=== PATIENT | male | born 1985 | race Caucasian/White ===

== ENCOUNTER → 2021-10-20 | Outpatient (CLI) | payer OTHER | END | disposition home or self-care (01) | LOC: RADUSWWP 15:51 | PROVIDERS: ATTEND Family Medicine | DX: Z53.9 Procedure and treatment not carried out, unspecified reason (principal) ==

== ENCOUNTER → 2021-10-31 | Outpatient (CLI) | payer OTHER ==
--- NOTE | 2021-10-31 10:22 | US ---
EXAMINATION TYPE: US renal artery duplex complete DATE OF EXAM: 10/31/2021 COMPARISON: NONE CLINICAL HISTORY: I10 Hypertension. MEASUREMENTS: RENAL SIZE: Rt Kidney: 10.8 x 6.2 x 4.7cm Lt Kidney: 11.6 x 6.0 x 5.7 RESISTANCE INDEX Right: 0.55 Left: 0.51 RA/AO RATIO (< 3.5 ) Right: 3.1 Left: 2.2 RA VELOCITY ( < 180 cm/s) Right: 207 cm/s Left: 149 cm/s Renal artery proximal on left obscured by overlying bowel gas. Technically difficult somewhat limited study due to overlying bowel gas and thick body habitus. Right renal artery mid very difficult to vi sualize due to tortuosity. Slight velocity increase on right mid may be due to tortuosity. Otherwise no evidence of renal artery stenosis. IMPRESSION: No evidence for renal artery stenosis although the examination is considered limited as noted above.
== END | disposition home or self-care (01) ==
LOC: RADUSWWP 09:03
PROVIDERS: ATTEND Family Medicine
DX: I10 Essential (primary) hypertension (principal)
CPT/HCPCS: 93975